=== PATIENT | female | born 1990 | race Caucasian/White ===

== ENCOUNTER → 2021-09-19 16:03 | Outpatient (CLI) | payer OTHER, SELFPAY ==
[2021-09-19 17:27] LABS: COVID19 -Nasal RAPID Negative (Negative)
== END ==
PROVIDERS: Visit Provider Physician Assistant
DX: Z20.822 Contact with and (suspected) exposure to COVID-19 (principal); J02.9 Acute pharyngitis, unspecified
CPT/HCPCS: 87070; 87077; 87147; 87635

== ENCOUNTER 2021-09-19 23:18 | Emergency (ER) | payer OTHER, SELFPAY ==
[2021-09-20 00:01] VITALS: BP 112/69; PULSE 83; RESP 12; TEMP 37.3; O2SAT 100; BMI 21.5
[2021-09-20] MEDS: diphenhydrAMINE 25 MG TABLET 50 MG PO (00:15)
--- NOTE | 2021-09-20 01:51 | PC.NURSE ---
sleeping in lobby, no improvement in swelling, upper lip appears more swollen. No airway involvement
--- NOTE | 2021-09-20 03:29 | PC.NURSE ---
patients upper lip swollen greater on the left than right upon arrival to ER. Patient denies tightness in her throat, mild redness noted to throat. No swelling. Patient managing secretions. Denies any new meds or environmental exposures. Negative covid and strep at walk in clinic.
[2021-09-20 04:13] VITALS: BP 109/70; PULSE 74; RESP 15; O2SAT 99
--- NOTE | 2021-09-20 05:16 | ED.SKABFB ---
HPI - Skin/Abscess/Foreign Bdy General Chief complaint: Skin/Abscess/Foreign Body Stated complaint: sore throat, chills, swollen upper lip Time Seen by Provider: 09/20/21 04:49 Source: patient Mode of arrival: Ambulatory History of Present Illness HPI narrative: 31-year-old woman with no significant history of allergies or allergic problems presented to urgent care earlier today with a scratchy throat low-grade fevers and myalgias. Strep throat test was negative and COVID test was negative. When she got home she noticed that she was having increasing swelling of her lips. Started on the left side of her lip and now involves both upper and lower lips. She has never had similar symptoms. She has no specific known allergies. She is not noticing any swelling to the tongue posterior pharynx, no difficulty with wheezing or coughing. Otherwise feels like she has a mild viral syndrome. No chest pain, dyspnea, abdominal pain, vomiting, diarrhea, headache. Related Data Previous Rx's Medication Instructions Recorded methylprednisolone 4 mg tablets in 4 mg PO DAILY #21 ea 09/20/21 a dose pack (Medrol (Jules)) Allergies Allergy/AdvReac Type Severity Reaction Status Date / Time No Known Drug Allergies Allergy Unverified 09/20/21 00:07 Review of Systems Review of Systems Narrative: Remainder of complete review of systems is otherwise unremarkable except for that included in the HPI. Patient History Social History Smoking Status: Never smoker Smoking Status: Never smoker alcohol intake frequency: a few times a month Substance Use Type: does not use Exam Narrative Exam Narrative: General: Healthy appearing, in no acute distress. Able to give a complete and coherent history. Well-nourished well-developed HEENT: Moist mucous membranes, normal sclera with reactive pupils, swollen upper and lower lip. There is a small area right lateral bottom lip that does not appear to be involved. There is no blistering or erythema. She has no additional buccal mucosa swelling, no tonsillar or tongue swelling. No posterior pharynx tightness. Neck: supple, no cervical adenopathy Respiratory: Lungs are clear to auscultation, no wheezing no rales no rhonchi. Full and symmetrical air movement Cardiac: Regular rate and rhythm no murmurs no bruits Abdomen: Soft, nontender, good bowel tones, no flank pain Skin: Warm and dry, no rashes Neurologic: Grossly neurologically intact with no obvious asymmetries or abnormalities Extremities: No trauma, well perfused Psych: Cooperative, appropriate insight and affect Initial Vital Signs Initial Vital Signs: Vital Signs Temperature 99.2 F 09/20/21 00:01 Pulse Rate 83 09/20/21 00:01 Respiratory Rate 12 09/20/21 00:01 Blood Pressure 112/69 09/20/21 00:01 Pulse Oximetry 100 09/20/21 00:01 Course Orders Ordered: Discontinued Medications Diphenhydramine HCl (Diphenhydramine 25 Mg Tablet) 50 mg PO NOW ONE Stop: 09/20/21 00:12 Last Admin: 09/20/21 00:15 Dose: 50 mg Documented by: HODA Vital Signs Vital signs: Vital Signs - 8 hr 09/20/21 00:01 09/20/21 04:13 Temperature 99.2 F Pulse Rate 83 74 Respiratory Rate 12 15 Blood Pressure 112/69 109/70 Pulse Oximetry 100 99 MDM - Skin/Abscess/Foreign Bdy MDM Narrative Medical decision making narrative: 31-year-old woman presents with upper lip swelling that looks sick and also probably involves her lower lip. No tongue or airway involvement. No obvious exposures no new medications. She has never had similar findings. She is given initially Benadryl in the emergency department which did not seem to alleviate the symptoms much. She is given additional 60 mg of oral prednisone and placed on a Medrol Dosepak. At this point there is no signs of respiratory compromise and no obvious exposure to explain the edema. She has been in the emergency department almost 5 hours and symptoms have not worsened. At this point she is safe for home discharge Discharge Plan Departure Patient Disposition: Home Clinical Impression: Acute allergic reaction Activity Restrictions/Additional Instructions: Thank you for coming in today You appear to be having an acute allergic reaction. At this point it seems to involve your lips only. I am not concerned with tongue or throat swelling and you have no wheezing or other concerning findings on your lung exam Frequently, we never quite figure out exactly what causes these reactions. If you do look back over the day and find some to lipstick, cream, makeup product, food or other exposure that might explain the swollen lips then obviously avoid what ever the exposure turns out to be. In the meantime, I have given you Benadryl in the emergency department as well as oral steroids to help with the swelling. I have given you a prescription for an additional 5 days of steroids in that decreasing dose so that the symptoms do not return. Prescription was sent to [facility] in [place] If you have worsening problems, developed any wheezing, notice any swelling to your tongue were feel that the back of your throat is getting swollen or scratchy you need to return to the emergency department Prescriptions: New methylprednisolone [Medrol (Jules)] 4 mg tablets,dose pack 4 mg PO DAILY Qty: 21 0RF Referrals: Miscellaneous,Doctor, MD [Primary Care Provider] -
[2021-09-20] MEDS: predniSONE 20 MG TABLET 60 MG PO (05:36)
[2021-09-20 05:43] VITALS: BP 106/70; PULSE 60; RESP 16; O2SAT 100
== END 2021-09-20 05:54 | disposition home or self-care (01) ==
PROVIDERS: Emergency Provider Emergency Medicine
DX: T78.40XA Allergy, unspecified, initial encounter (principal); R60.0 Localized edema; J02.9 Acute pharyngitis, unspecified; Z20.822 Contact with and (suspected) exposure to COVID-19
CPT/HCPCS: 87070; 87077; 87147; 87635; 99283